=== PATIENT | female | born 1955 | race Caucasian/White ===

== ENCOUNTER 2023-10-21 12:54 | Inpatient (IN) | payer OTHER ==
[2023-10-21 14:11] VITALS: BMI 31.3
[2023-10-21] MEDS ORDERED: BENZONATATE 200 MG CAPSULE PO PRN (14:32)
[2023-10-21] MEDS ORDERED: NALOXONE HCL 0.4 MG/ML VIAL IM PRN (14:32)
[2023-10-21] MEDS ORDERED: NALOXONE HCL (KLOXXADO) 8 MG SPRAY NS PRN (14:32)
[2023-10-21] MEDS ORDERED: IBUPROFEN 400 MG TABLET (FP) PO PRN (14:32)
[2023-10-21] MEDS ORDERED: METHOCARBAMOL 500 MG TABLET PO PRN (14:32)
[2023-10-21] MEDS ORDERED: LORazepam 1 MG TABLET PO PRN (14:32)
[2023-10-21] MEDS ORDERED: guaiFENesin 600 MG TABLET.ER (FP) PO PRN (14:32)
[2023-10-21] MEDS ORDERED: DICYCLOMINE HCL 10 MG CAPSULE PO PRN (14:32)
[2023-10-21] MEDS ORDERED: IBUPROFEN 600 MG TABLET (FP) PO PRN (14:32)
[2023-10-21] MEDS ORDERED: BENZOCAINE/MENTHOL (CHLORASEPTIC ) LOZENGE MM PRN (14:32)
[2023-10-21] MEDS ORDERED: ACETAMINOPHEN 325 MG TABLET (FP) PO PRN (14:32)
[2023-10-21] MEDS ORDERED: LORazepam 1 MG TABLET ONE (15:36)
[2023-10-21] MEDS: LORazepam 1 MG TABLET PO ONE (15:37)
[2023-10-21] MEDS: PRENATAL VITAMINS W/ FOLIC ACID TABLET (FP) PO SCH (15:37)
[2023-10-21] MEDS: hydrOXYzine PAMOATE 25 MG CAPSULE (FP) PO PRN (15:38)
[2023-10-21] MEDS ORDERED: LORazepam 2 MG TABLET PO SCH (17:00)
[2023-10-21] MEDS: LORazepam 1 MG TABLET PO SCH (17:20)
[2023-10-21] MEDS: amLODIPine BESYLATE 5 MG TABLET (FP) PO ONE ×2 (19:32→19:41)
[2023-10-21] MEDS: ASPIRIN 81 MG CHEWABLE TABLETS PO SCH ×2 (19:33→19:41)
[2023-10-21] MEDS: THIAMINE 100 MG TABLET PO SCH (22:43)
[2023-10-21] MEDS: MELATONIN 5 MG TABLETS PO SCH (22:43)
[2023-10-22] MEDS: LOPERAMIDE HCL 2 MG CAPSULE PO PRN (01:04)
[2023-10-22] MEDS: ONDANSETRON *ODT* 4 MG TABLET SL PRN (01:07)
[2023-10-22] MEDS: FLUTICASONE/UMECLIDIN/VILANTER(100-62.5-25 TRELEGY ELLIPTA) INAHLER IH SCH (09:32)
[2023-10-22] MEDS: GABAPENTIN 400 MG CAPSULE PO SCH ×2 (09:33→13:32)
[2023-10-22] MEDS: LOSARTAN POTASSIUM 50 MG TABLET PO SCH (09:33)
[2023-10-22] MEDS: CITALOPRAM HYDROBROMIDE 20 MG TABLET PO SCH (09:33)
[2023-10-22] MEDS: ASPIRIN 81 MG CHEWABLE TABLETS PO SCH (09:33)
[2023-10-22] MEDS: lamoTRIgine 100 MG TABLET PO SCH (10:08)
[2023-10-22] MEDS: SODIUM CHLORIDE 1 GM TABLET PO SCH (10:47)
[2023-10-22] MEDS: DONEPEZIL HCL 5 MG TABLET (FP) PO SCH (10:47)
[2023-10-22 11:49] LABS: CHLORIDE 108 mmol/L (98-107); POTASSIUM 4.4 mmol/L (3.5-5.1); SODIUM 140 mmol/L (136-145)
[2023-10-22 11:51] LABS: ANION GAP 4 mmol/L (4-13); BLOOD UREA NITROGEN 6.6 mg/dL (7-18); CALCIUM 8.9 mg/dL (8.5-10.1); CO2 29 mmol/L (21-32); GLUCOSE,RANDOM 105 mg/dL (74-106)
[2023-10-22 11:52] LABS: ALBUMIN 3.2 g/dl (3.4-5.0)
[2023-10-22 11:54] LABS: SGPT/ALT 23 U/L (13-61)
[2023-10-22 11:55] LABS: CREATININE 0.8 mg/dL (0.55-1.3); SGOT/AST 27 U/L (15-37)
[2023-10-22 11:56] LABS: BILIRUBIN,TOTAL 0.3 mg/dL (0.2-1); HEMATOCRIT 33.8 % (32.4-45.2); HEMOGLOBIN 11.4 GM/dL (10.7-15.3); MCH 27.6 pg (25.7-33.7); MCHC 33.8 g/dl (32.0-36.0); MEAN CELL VOLUME 81.6 fl (80-96); MEAN PLT VOLUME 7.5 fl (7.5-11.1); PLATELET COUNT 257 10^3/uL (134-434); RBC 4.13 M/mm3 (3.60-5.2); RDW 18.7 % (11.6-15.6); TOT PROT 6.4 g/dl (6.4-8.2); WHITE BLOOD COUNT 4.2 K/mm3 (4.0-10.0)
[2023-10-22 11:57] LABS: ALK PHOS 70 U/L (45-117)
[2023-10-22] MEDS: ATORVASTATIN CA 40 MG TABLET (FP) PO SCH (22:10)
[2023-10-23] MEDS: LORazepam 1 MG TABLET PO SCH (05:38)
[2023-10-23] MEDS: MAGNESIUM HYDROX 2400MG/30ML ORAL SUSPENSION 30 ML CUP PO PRN (13:22)
[2023-10-23] MEDS: POLYETHYLENE GLYCOL (HEALTHYLAX) 3350 17 GM PACKET PO PRN (20:33)
[2023-10-24] MEDS ORDERED: LORazepam 0.5 MG TABLET PO PRN
[2023-10-24] MEDS: LORazepam 0.5 MG TABLET PO SCH (05:18)
[2023-10-24] MEDS: LOSARTAN POTASSIUM 50 MG TABLET PO SCH (09:11)
[2023-10-24] MEDS: FLUTICASONE/UMECLIDIN/VILANTER(100-62.5-25 TRELEGY ELLIPTA) INAHLER IH SCH (09:11)
[2023-10-24] MEDS: MAG HYDROX/AL HYDROX/SIMETH 30 ML UNIT-DOSE CUP PO PRN (12:15)
[2023-10-24] MEDS: BISMUTH SUBSALICYLATE 524 MG/30 ML PO PRN (18:45)
[2023-10-25] MEDS: LORazepam 0.5 MG TABLET PO ONE (05:29)
[2023-10-25 05:33] VITALS: RESP 16
[2023-10-25 09:49] VITALS: BP 125/73; PULSE 72; TEMP 98.2
== END 2023-10-25 10:13 | disposition home or self-care (01) | DRG 897 ==
LOC: YASAS 12:54 → Y6N 15:43
PROVIDERS: ADMIT Allergy & Immunology; ATTEND Surgery
PROC: HZ2ZZZZ Detoxification Services for Substance Abuse Treatment (ICD-10-PCS; principal; 2023-10-21)
DX: F10.230 Alcohol dependence with withdrawal, uncomplicated (principal); F17.210 Nicotine dependence, cigarettes, uncomplicated; F31.9 Bipolar disorder, unspecified; F10.282 Alcohol dependence with alcohol-induced sleep disorder; F10.24 Alcohol dependence with alcohol-induced mood disorder; F41.8 Other specified anxiety disorders; E78.5 Hyperlipidemia, unspecified; I10 Essential (primary) hypertension; G30.9 Alzheimer's disease, unspecified; F02.80 Dementia in other diseases classified elsewhere, unspecified severity, without behavioral disturbance, psychotic disturbance, mood disturbance, and anxiety; R53.1 Weakness; Z99.89 Dependence on other enabling machines and devices; Z88.0 Allergy status to penicillin
CPT/HCPCS: 36415; 80053; 80305; 80307; 82140; 85027; 86780; 93005; 93010; Q0162